=== PATIENT | male | born 1985 | race Caucasian/White ===

== ENCOUNTER → 2016-05-16 | Outpatient (CLI) | payer OTHER ==
--- NOTE | 2016-05-16 13:34 | MR ---
EXAMINATION TYPE: MR knee RT wo con DATE OF EXAM: 05/16/2016 11:36 AM COMPARISON: NONE HISTORY: 30-year-old male with pain in the right knee. TECHNIQUE: Multiplanar, multisequence imaging of the right knee is performed without IV contrast. FINDINGS: ACL, PCL, and MCL complex appear intact. There is [id number] fluid seen along the popliteus ten don at the femoral origin. Otherwise, LCL complex appears intact. Lateral meniscus is intact and overall lateral compartment articular cartilage volume is maintained. There is a minimal inner margin fraying involving the body of the medial meniscus and some degenerati ve signal at the junction of the posterior horn and body but otherwise without discrete meniscal tear . Medial compartment articular cartilage volume is maintained. Patellofemoral compartment articular cartilage volume is maintained. Extensor mechanism is intact. Physiologic knee joint fluid. There are small ganglion cysts at the origin of both medial and lateral heads of the gastrocnemius measuring up to 1.0 cm. Trace fluid seen extending between the semimembra nosus and medial head gastrocnemius without significant Da Silva's cyst at this time. Normal popliteal artery anatomy and muscle bulk. No suspicious bone marrow replacement. IMPRESSION: 1. Mild popliteus tendon tenosynovitis. Otherwise, no cruciate/collateral ligament injury. 2. Some minimal inner margin fraying of the body of the medial meniscus and some degenerative signal at the junction of the posterior horn and body. No discrete meniscal tear.
== END | disposition home or self-care (01) ==
LOC: RADMRIMAIN 10:59
PROVIDERS: ATTEND Family Medicine
DX: M65.861 Other synovitis and tenosynovitis, right lower leg (principal); M25.561 Pain in right knee

== ENCOUNTER 2017-10-01 00:26 | Emergency (ER) | payer OTHER ==
[2017-10-01] MEDS ORDERED: ACETAMINOPHEN IV (For NPO) 1,000 MG in EMPTY BAG 1 BAG IVPB STA (00:33)
[2017-10-01 00:41] LABS: Basophils # (A) 0.1 k/uL (0-0.2); Basophils % (A) 1 %; Eosinophils # (A) 0.4 k/uL (0-0.7); Eosinophils % (A) 5 %; HCT 44.8 % (39.0-53.0); HGB 15.3 gm/dL (13.0-17.5); Lymphocytes # (A) 2.4 k/uL (1.0-4.8); Lymphocytes % (A) 26 %; MCH 28.2 pg (25.0-35.0); MCV 82.9 fL (80.0-100.0); Mean Platelet Volume 7.4; Monocytes # (A) 0.4 k/uL (0-1.0); Monocytes % (A) 4 %; Neutrophils # (A) 5.7 k/uL (1.3-7.7); Neutrophils % (A) 62 %; Platelet Count 284 k/uL (150-450); RDW 13.8 % (11.5-15.5); WBC 9.2 k/uL (3.8-10.6)
[2017-10-01 00:48] LABS: INR 1.1 (<1.2); Partial Thromboplastin Time 22.6 sec (22.0-30.0); Prothrombin Time 10.6 sec (9.0-12.0)
[2017-10-01 00:49] LABS: ALT 87 U/L (21-72); AST 52 U/L (17-59); Albumin 4.7 g/dL (3.5-5.0); Alcohol 78 mg/dL; Alkaline Phosphatase 53 U/L (38-126); Amylase 54 U/L (30-110); Anion Gap 17 mmol/L; Blood Urea Nitrogen 8 mg/dL (9-20); Calcium 9.5 mg/dL (8.4-10.2); Carbon Dioxide 21 mmol/L (22-30); Chloride 106 mmol/L (98-107); Glucose 101 mg/dL (74-99); Lipase 74 U/L (23-300); Sodium 144 mmol/L (137-145); Total Bilirubin 0.4 mg/dL (0.2-1.3); Total Protein 7.4 g/dL (6.3-8.2)
[2017-10-01 00:51] LABS: Creatine Kinase 180 U/L (55-170)
[2017-10-01] MEDS ORDERED: ceFAZolin IN SWFI 2 GM/20 ML SYRINGE IVP STA (00:54)
[2017-10-01 00:56] LABS: Glucose,Whole Blood 93 mg/dL (75-99)
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
[2017-10-01 01:04] LABS: Creatine Kinase MB 0.4 ng/mL (0.0-2.4); Troponin I <0.012 ng/mL (0.000-0.034)
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
[2017-10-01 01:24] LABS: Appearance,Urine Clear (Clear); Bilirubin,Urine Negative (Negative); Blood,Urine Moderate (Negative); Color,Urine Colorless; Glucose,Urine (UA) Negative (Negative); Ketones,Urine Negative (Negative); Leukocyte Esterase,Urine Negative (Negative); Nitrite,Urine Negative (Negative); Protein,Urine Negative (Negative); Specific Gravity,Urine 1.002 (1.001-1.035); Urobilinogen,Urine <2.0 mg/dL (<2.0)
[2017-10-01 01:31] LABS: Amphetamine Screen,Urine Not Detected (NotDetected); Barbiturate Screen,Urine Not Detected (NotDetected); Benzodiazepines Screen,Urine Not Detected (NotDetected); Cocaine Screen,Urine Not Detected (NotDetected); Methadone Screen, Urine Not Detected (NotDetected); Opiate Screen,Urine Not Detected (NotDetected); Oxycodone Screen, Urine Not Detected (NotDetected); Phencyclidine Screen,Urine Not Detected (NotDetected); Tricyclic Antidepressant,Urine Not Detected (NotDetected); Urn Cannabinoid Scrn Not Detected (NotDetected)
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
[2017-10-01] MEDS ORDERED: MORPHINE SULFATE 2 MG/ML SYRINGE IVP STA (02:59)
[2017-10-01] MEDS ORDERED: ONDANSETRON 4 MG/2 ML VIAL IVP STA ×2 (06:15→13:09)
[2017-10-01] MEDS ORDERED: ACETAMINOPHEN TAB 500 MG TAB PO STA (13:08)
[2017-10-01] MEDS ORDERED: ACETAMINOPHEN TAB 500 MG TAB PO PRN (22:53)
[2017-10-02] MEDS ORDERED: FAMOTIDINE 20 MG TAB PO STA (02:36)
[2017-10-02 14:11] VITALS: RESP 16
[2017-10-02 18:41] VITALS: BP 143/84; PULSE 72; TEMP 99.4
== END 2017-10-02 19:05 ==
LOC: EC 00:26
DX: R45.851 Suicidal ideations (principal); F32.9 Major depressive disorder, single episode, unspecified; S20.312A Abrasion of left front wall of thorax, initial encounter; S60.512A Abrasion of left hand, initial encounter; S60.511A Abrasion of right hand, initial encounter; S40.812A Abrasion of left upper arm, initial encounter; S40.811A Abrasion of right upper arm, initial encounter; S80.812A Abrasion, left lower leg, initial encounter; S80.811A Abrasion, right lower leg, initial encounter; S00.212A Abrasion of left eyelid and periocular area, initial encounter; S30.811A Abrasion of abdominal wall, initial encounter; R00.0 Tachycardia, unspecified; R40.2412 Glasgow coma scale score 13-15, at arrival to emergency department; V48.5XXA Car driver injured in noncollision transport accident in traffic accident, initial encounter; Y93.89 Activity, other specified; Y92.410 Unspecified street and highway as the place of occurrence of the external cause
CPT/HCPCS: 36415; 86900; 86901; 80053; 82150; 82550; 82553; 83690; 84484; 85025; 85610; 85730; 86850; 81001; 80306; 80320; 72170; 71045; 72125; 70486; 70450; 71260; 74177; 99285; 96365; 96375 ×3; 96376; J2405; J2270; J0131; J0690; Q9967